=== PATIENT | male | born 1980 | race Caucasian/White ===

== ENCOUNTER → 2017-05-04 10:53 | Outpatient (CLI) | payer OTHER | END | disposition home or self-care (01) | LOC: D.RAD 10:53 | DX: Z02.71 Encounter for disability determination (principal) ==

== ENCOUNTER → 2018-04-22 08:43 | Outpatient (CLI) | payer MEDICAID ==
--- NOTE | 2018-04-25 11:46 | ST ---
PATIENT:CHAY NEWBERRY MEDICAL RECORD: [id number] SEX: M LOCATION:[facility] ORDER #: ADMISSION DATE: 04/22/18 AGE OF PATIENT: 37 REFERRING PHYSICIAN: INTERPRETING PHYSICIAN: LLOYD LIM MD DATE OF SERVICE: 04/22/2018 PROCEDURE: Stress test. INDICATION: Chest pain compatible with angina. The patient was exercised on standard Ezekiel protocol for 10 minutes, achieving greater than 85% of max target heart rate response with no EKG changes, no dysrhythmias, no anginal symptomatology. OVERALL IMPRESSION: Negative for inducible ischemia at adequate cardiac workload. TRANSINT:[id number] Voice Confirmation ID: [id number] DOCUMENT ID: [id number] LLOYD LIM MD at 1146 CC: [id number] DICTATION DATE: 04/22/18 1344 APARTMENT MANAGER: 04/23/18 0844 [facility] CLI 04/22/[address] [id number]
== END | disposition home or self-care (01) ==
LOC: D.HCCARDIO 08:43
DX: I20.9 Angina pectoris, unspecified (principal)